=== PATIENT | female | born 1955 | race Caucasian/White ===

== ENCOUNTER 2018-03-23 13:31 | Observation (INO) ==
[2018-03-23] MEDS ORDERED: IPRATROPIUM/ALBUTEROL 3 ML AMPUL.NEB NEB ONE (13:37)
[2018-03-23] MEDS ORDERED: 0.9 % SODIUM CHLORIDE 1,000 ML IV ONE (13:37)
[2018-03-23] MEDS ORDERED: LEVOFLOXACIN 500 MG/100 ML BAG IV ONE (13:55)
--- NOTE | 2018-03-23 14:15 | Emergency Department Note ---
SOB HPI - General Chief Complaint: Shortness of Breath/Dyspnea Stated Complaint: shortness of breath Time Seen by Provider: 03/23/18 13:54 Source: patient Mode of arrival: ambulatory Limitations: no limitations - History of Present Illness 62-year-old female presents with cough and cold symptoms since March 13. She was seen on the and placed on Augmentin. States she still has a productive cough but the sputum is clear now. However she still short of breath. Her oxygen saturations 74% here today on room air. She was sent over from [facility] for further evaluation. She does wear oxygen at home at night but not usually during the day. States this is much worse than her baseline. No fever chills in the last 24 hours but has had fever and chills intermittently over the last week. Does have some nausea. No vomiting or diarrhea. Started with a sore throat resolved. No ear pain. - Related Data Home Medications Medication Instructions Recorded Confirmed Cyanocobalamin (Vitamin B-12) 2,500 mcg PO QDAYCC 12/20/15 11/07/17 [Vitamin B12] amoxicillin 875 mg-potassium 1 tab PO BID 03/23/18 03/23/18 clavulanate 125 mg tablet Previous Rx's Medication Instructions Recorded albuterol sulfate HFA 90 180 mcg INHALATION Q6H PRN #36 g 04/19/15 mcg/actuation aerosol inhaler acyclovir 400 mg tablet 400 mg PO QDAY #90 tab 04/28/17 azathioprine 50 mg tablet 50 mg PO .COMPLEX #315 tab 05/26/17 atorvastatin 20 mg tablet 20 mg PO QDAY #30 tab 05/29/17 triamterene 37.5 1 cap PO QDAY PRN #30 cap 05/29/17 mg-hydrochlorothiazide 25 mg capsule ergocalciferol (vitamin D2) 50,000 50,000 unit PO Q2W #6 cap 09/01/17 unit capsule duloxetine 60 mg capsule,delayed 60 mg PO QDAY 90 Days #90 cap 10/21/17 release carisoprodol 350 mg tablet 350 mg PO .COMPLEX #60 tab 11/24/17 metformin 850 mg tablet 850 mg PO TID #270 tab 03/02/18 methadone 10 mg tablet 20 mg PO Q12H #120 tab 03/02/18 levothyroxine 50 mcg tablet 25 mcg PO QDAY 90 Days #45 tab 03/23/18 Allergies Allergy/AdvReac Type Severity Reaction Status Date / Time Paroxetine [From Paxil] Allergy Severe Hives Verified 03/23/18 12:43 promethazine [From Phenergan] Allergy Unknown Unknown Verified 03/23/18 12:43 aspirin AdvReac Severe Diarrhea Verified 03/23/18 12:43 codeine AdvReac Severe Gastrointestinal Verified 03/23/18 12:43 Upset NSAIDS (Non-Steroidal AdvReac Severe Gastrointestinal Verified 03/23/18 12:43 Anti-Inflamma Upset Review of Systems All systems ED: reviewed and negative except as stated. Past Medical History - Past Medical History Medical history: Reports: COPD, DM, fibromyalgia Psychiatric history: Reports: no psych history [employer]ICER history: Reports: non-contributory Surgical history ED: Reports: non-contributory, orthopedic, other - Social History smoking status: Current every day smoker Alcohol use: Reports: Rarely Drug use: Reports: none Physical Exam Limitations: no limitations General appearance: alert, in no apparent distress Head: atraumatic, normocephalic, normal inspection Eye: Present: normal appearance. Absent: conjunctival injection ENT: normal exam, normal oropharynx, mucous membranes moist, TM's normal bilaterally, normal external ear exam Neck: Present: normal inspection, trachea midline. Absent: tenderness, lymphadenopathy Chest: Present: symmetric chest wall rise Respiratory: Present: respiratory distress (Mildly labored breathing on arrival with oxygen saturations in the 70s on room air), wheezes (Expiratory wheezes throughout). Absent: stridor Cardiovascular: Present: regular rate, normal heart sounds Neurological: Present: alert, oriented X3 Psychiatric: Present: normal affect, normal mood Skin: Present: warm, dry, intact, normal color Course Course Narrative: @[address] Ortiz who agrees to see/admit the patient. Vital Signs Temperature 97.3 F 03/23/18 13:31 Pulse Rate 96 H 03/23/18 13:31 Respiratory Rate 24 H 03/23/18 13:31 Blood Pressure 144/128 03/23/18 13:31 Pulse Oximetry (%) 74 L 03/23/18 13:31 Temperature 97.3 F 03/23/18 13:31 Pulse Rate 91 H 03/23/18 14:42 Respiratory Rate 19 03/23/18 14:42 Blood Pressure 99/85 10/01/18 14:42 Pulse Oximetry (%) 90 03/23/18 14:42 Shortness of Breath/Dyspnea - Lab Data Lab results reviewed: Yes I reviewed the patient's lab results. Result diagrams: 03/23/18 13:36 03/23/18 13:36 Lab Results 03/23/18 03/23/18 03/23/18 Range/Units 13:36 13:36 13:36 WBC 8.6 (4.5-11.0) K/mcL RBC 4.51 (4.00-5.20) M/mcL Hgb 16.1 H (12.0-15.0) g/dL Hct 48.3 H (36.0-48.0) % MCV 107.1 H (80.0-100.0) fL MCH 35.6 H (26.0-34.0) pg MCHC 33.3 (31.0-36.0) g/dL RDW 16.0 H (11.5-14.5) % Plt Count 261 (140-440) K/mcL MPV 8.2 (7.4-10.4) fL Total Counted 100 Seg Neutrophils % 81 H (38-78) % Band Neutrophils % Not Reportable Lymphocytes % 11 L (15-49) % Monocytes % (Manual) 7 (1-12) % Eosinophils % (Manual) 1 (0-7) % Platelet Estimate Normal (NORMAL) RBC Morphology Abnorm A (NORMAL) Anisocytosis 1+ A (NONE SEEN) Macrocytosis 2+ A (NONE SEEN) VBG Lactic Acid 2.2 (0.5-2.2) mmol/L Sodium 136 (133-145) mmol/L Potassium 4.5 (3.3-5.1) mmol/L Chloride 93 L (96-108) mmol/L Carbon Dioxide 28 (22-30) mmol/L Anion Gap 15.0 (8-16) BUN 15 (8-23) mg/dl Creatinine 0.8 (0.6-1.1) mg/dl GFR Calculation 79 Glucose 168 H (70-105) mg/dL Calcium 10.2 (8.6-10.4) mg/dl Total Bilirubin 0.5 (0.0-1.0) mg/dL AST 16 (0-37) U/l ALT 12 (0-40) U/l Alkaline Phosphatase 113 (39-117) U/L NT-Pro-B Natriuret Pep 65.3 (0-125) pg/ml Total Protein 7.4 (5.9-8.4) gm/dL Albumin 4.5 (3.2-5.2) gm/dL Globulin 2.9 (2.2-3.7) gm/dL Albumin/Globulin Ratio 1.6 (1.0-2.3) - Radiology Data Radiology results reviewed: Yes I reviewed the patient's radiology results. Disposition Pt seen by [facility]/PA only: Yes Clinical Impression: Hypoxia, Pneumonia Disposition: Xfer As Inpt ([facility]) Condition: Fair Referrals: Les Lopez MD [Primary Care Provider] - Time of Disposition: 15:24
--- NOTE | 2018-03-23 14:23 | XRay Report ---
CLINICAL INFORMATION: shortness of breath COMPARISON: None. FINDINGS: Heart size, mediastinum and pulmonary vessels are normal. Mild patchy bibasilar airspace disease either atelectasis or developing infiltrate. No effusion. IMPRESSION: Mild patchy bibasilar airspace disease is new. Atelectasis versus infiltrate. Interpreted and Authenticated by: Brent Hsu 03/23/18
[2018-03-23 14:25] LABS: Mean Cell Volume 107.1 fL (80.0-100.0); Mean Corpuscular HGB Conc 33.3 g/dL (31.0-36.0); Mean Corpuscular Hemoglobin 35.6 pg (26.0-34.0); Platelet Count 261 K/mcL (140-440); RBC 4.51 M/mcL (4.00-5.20)
[2018-03-23 14:46] LABS: Anisocytosis 1+ (NONE SEEN); Eosinophils % (Manual) 1 % (0-7); Lymphocytes % 11 % (15-49); Macrocytosis 2+ (NONE SEEN); Monocytes % (Manual) 7 % (1-12); Platelet Estimate NORMAL (NORMAL); RBC Morphology ABNORM (NORMAL); Segmented Neutrophils % 81 % (38-78)
[2018-03-23 14:47] LABS: ALT/SGPT 12 U/l (0-40); Albumin 4.5 gm/dL (3.2-5.2); Albumin/Globulin Ratio 1.6 (1.0-2.3); Alkaline Phosphatase 113 U/L (39-117); Blood Urea Nitrogen 15 mg/dl (8-23); proBNP 65.3 pg/ml (0-125)
--- NOTE | 2018-03-23 17:00 | Internal Med History&Physical ---
<Pierre Scanlon - Last Filed: 03/23/18 16:57> Medical - H&P: HPI Patient information: Note initiated : 03/23/18 at 4:57 pm Service Date, if different from initiated Date: [] Patient: Rosa Eckert a 62 y/o F admitted on for shortness of breath. Chief Complaint: [] Chief complaint: SOB for about a week History of present illness: Ms. Eckert is a 62 year old F who presents with SOB for about a week. Started with a URI on the 03/13/18, started Augmentin on 03/14/18. SOB has improved over this course along with decrease in sore throat. Sputum has also changed from green to clear, but still present. Pt reports cough, chest pain w/ cough, runny nose and diaphoresis. Pt denies throat pain or fever. Review of systems: Gen: Reports sweats. denies weight changes, chills or fever HEENT: Pt denies vision changes, tinnitus, sore throat or neck pain CV: reports SOB, slight pedal edema, denies palpitations, chest pain (unless coughing) Pulm: Repots cough, clear sputum, GI: denies changes in freq, hematochezia/melena, or painful defecation : denies changes in freq, hesitancy or inability to void Neuro: reports some LE peripheral neuropathy, denies headaches or dizziness MSK: Denies muscle weakness or arthralgias Medical - H&P: PMH Medical history: Pt reports psoriatic arthritis DM Type 2 COPD (last exacerbation in 2008) Hypothyroidism B12 def Surgical history: Left knee arthroscopy before 2008 Left broken ankle surgery 2008 Pertinent family history: Father of lung cancer in his 50's Mother of ARDS in her 70's with history of DM type II Both were lifelong smokers Social history: 34 pack/year smoker Hasn't drank in years Smoked marijuana years ago Smoking status: Current every day smoker Have you smoked in the last 12 months: Yes Medical - H&P: Meds Home Medications Medication Instructions Recorded Confirmed Type albuterol sulfate HFA 90 180 mcg INHALATION Q6H PRN #36 g 04/19/15 03/23/18 Rx mcg/actuation aerosol inhaler Cyanocobalamin (Vitamin B-12) 2,500 mcg PO QDAYCC 12/20/15 03/23/18 History [Vitamin B12] acyclovir 400 mg tablet 400 mg PO QDAY #90 tab 04/28/17 03/23/18 Rx azathioprine 50 mg tablet 50 mg PO .COMPLEX #315 tab 05/26/17 03/23/18 Rx atorvastatin 20 mg tablet 20 mg PO QDAY #30 tab 05/29/17 03/23/18 Rx triamterene 37.5 1 cap PO QDAY PRN #30 cap 05/29/17 03/23/18 Rx mg-hydrochlorothiazide 25 mg capsule ergocalciferol (vitamin D2) 50,000 50,000 unit PO Q2W #6 cap 09/01/17 03/23/18 Rx unit capsule duloxetine 60 mg capsule,delayed 60 mg PO QDAY 90 Days #90 cap 10/21/17 Rx release carisoprodol 350 mg tablet 350 mg PO .COMPLEX #60 tab 11/24/17 03/23/18 Rx metformin 850 mg tablet 850 mg PO TID #270 tab 03/02/18 03/23/18 Rx methadone 10 mg tablet 20 mg PO Q12H #120 tab 03/02/18 03/23/18 Rx Dextromethorphan Polistirex 30 mg PO Q12H PRN 03/23/18 03/23/18 History [Delsym] amoxicillin 875 mg-potassium 1 tab PO BID 03/23/18 03/23/18 History clavulanate 125 mg tablet levothyroxine 50 mcg tablet 25 mcg PO QDAY 90 Days #45 tab 03/23/18 03/23/18 Rx Allergies Allergy/AdvReac Type Severity Reaction Status Date / Time Paroxetine [From Paxil] Allergy Severe Hives Verified 03/23/18 12:43 promethazine [From Phenergan] Allergy Unknown Unknown Verified 03/23/18 12:43 aspirin AdvReac Severe Diarrhea Verified 03/23/18 12:43 codeine AdvReac Severe Gastrointestinal Verified 03/23/18 12:43 Upset NSAIDS (Non-Steroidal AdvReac Severe Gastrointestinal Verified 03/23/18 12:43 Anti-Inflamma Upset Medical - H&P: Exam - Constitutional Vitals: Temp Pulse Resp BP Pulse Ox 97.3 F 95 H 20 111/86 90 03/23/18 13:31 03/23/18 16:41 03/23/18 16:41 03/23/18 16:41 03/23/18 16:41 Exam: Gen: AAOx4, NAD, HEENT: PERRL, MMM, supple neck CV: RRR, pt states she has systolic murmur, but unable to hear. No rubs/ gallops. 1+ pedal edema Pulm: diminished breath sounds w/ crackles bital Abd: nl BSx4, NT/ND, Neuro: slightly decreased sensation in toes bilaterally MSK: 5/5 muscle strength in UE and LE Medical - H&P: Reslt - Labs CBC & Chem 7: 03/23/18 13:36 03/23/18 13:36 Labs: Short CBC 03/23/18 Range/Units 13:36 WBC 8.6 (4.5-11.0) K/mcL Hgb 16.1 H (12.0-15.0) g/dL Hct 48.3 H (36.0-48.0) % Plt Count 261 (140-440) K/mcL BMP 03/23/18 13:36 Sodium 136 Potassium 4.5 Chloride 93 L Carbon Dioxide 28 BUN 15 Creatinine 0.8 Glucose 168 H Calcium 10.2 Liver Function 03/23/18 Range/Units 13:36 Total Bilirubin 0.5 (0.0-1.0) mg/dL AST 16 (0-37) U/l ALT 12 (0-40) U/l Alkaline Phosphatase 113 (39-117) U/L Albumin 4.5 (3.2-5.2) gm/dL <Bobo Ortiz - Last Filed: 03/23/18 18:08> Medical - H&P: HPI Patient information: Note initiated : 03/23/18 at 6:00 pm Service Date, if different from initiated Date: [] Patient: Rosa Eckert a 62 y/o F admitted on for shortness of breath. Chief Complaint: [] History of present illness: Ms. Eckert is a 62 year old F cough is lessening but not resolved and was concerned antibiotics running short. Still smokes 1/2 ppd while sick this week but is baseline 1ppd x 36 years baseline 2lpm oxygen at night none during the day. quit smoking years ago. - Constitutional Constitutional: Present: excessive sweating, fatigue. Absent: fever(s) - Respiratory Respiratory: Present: cough, dyspnea on exertion, wheezing, chest congestion Medical - H&P: PMH Time spent discussing smoking cessation with patient: 3 to 10 minutes Medical - H&P: Exam - Constitutional Vitals: Temp Pulse Resp BP Pulse Ox 97.3 F 86 20 110/86 92 03/23/18 13:31 03/23/18 17:46 03/23/18 17:46 03/23/18 17:20 03/23/18 17:46 General appearance: average body habitus, cooperative - Respiratory Respiratory exam: Present: decreased breath sounds, prolonged expiratory phase, wheezes - Cardiovascular Cardiovascular exam: Present: normal rate and rhythm - GI/Abdominal GI/Abdominal exam: Present: normal bowel sounds - Other Additional findings: pt standing on room air sats drop to 84. with oxygen up to 87% walking in place on 2 liters Medical - H&P: Reslt - Labs CBC & Chem 7: 03/23/18 13:36 03/23/18 13:36 Labs: Short CBC 03/23/18 Range/Units 13:36 WBC 8.6 (4.5-11.0) K/mcL Hgb 16.1 H (12.0-15.0) g/dL Hct 48.3 H (36.0-48.0) % Plt Count 261 (140-440) K/mcL BMP 03/23/18 13:36 Sodium 136 Potassium 4.5 Chloride 93 L Carbon Dioxide 28 BUN 15 Creatinine 0.8 Glucose 168 H Calcium 10.2 Liver Function 03/23/18 Range/Units 13:36 Total Bilirubin 0.5 (0.0-1.0) mg/dL AST 16 (0-37) U/l ALT 12 (0-40) U/l Alkaline Phosphatase 113 (39-117) U/L Albumin 4.5 (3.2-5.2) gm/dL Medical - H&P: A/P (1) Respiratory distress Current visit: Yes Status: Acute improved. tx copd exacerbation and continue augmentin for pneumonia (2) Acute exacerbation of chronic obstructive pulmonary disease (COPD) Problem details: pt improved on nebs and iv steroids but will be observed overnight. start nicotine patch stop smoking. will need oxygen 2lpm rest 4lpm activity Current visit: Yes Status: Acute (3) Pneumonia Current visit: Yes Status: Resolved augmentin for 2 more days. increase steroids. - Narrative A/P Narrative: 55 mins spent in evaluation and coordination of care for this patient today. Pt seen and examined independently from the [facility] Capo
[2018-03-23] MEDS ORDERED: ACETAMINOPHEN 325 MG TABLET PO PRN (19:06)
[2018-03-23] MEDS ORDERED: ALBUTEROL SULFATE 2.5 MG/3 ML NEBULIZER NEB PRN (19:06)
[2018-03-23] MEDS: IPRATROPIUM/ALBUTEROL 3 ML AMPUL.NEB NEB SCH (19:41)
[2018-03-23] MEDS ORDERED: ALBUTEROL SULFATE 1 PUFF INHALER INH PRN (21:40)
[2018-03-23] MEDS ORDERED: DEXTROMETHORPHAN POLISTIREX 30 MG/5 ML PO PRN (21:40)
[2018-03-23] MEDS ORDERED: CARISOPRODOL 350 MG TABLET PO PRN (21:45)
[2018-03-23] MEDS ORDERED: azaTHIOprine 50 MG TABLET PO PRN (21:45)
[2018-03-23] MEDS: METHADONE 5 MG TABLET PO SCH (22:19)
[2018-03-23] MEDS: 0.9 % SODIUM CHLORIDE 10 ML SYRINGE IV SCH (22:20)
[2018-03-23] MEDS: NICOTINE 21 MG PATCH TOPICAL SCH (22:21)
[2018-03-24] MEDS: methylPREDNISolone SOD SUCC 40 MG/ML VIAL IV SCH ×3 (00:11→12:23)
[2018-03-24] MEDS: IPRATROPIUM/ALBUTEROL 3 ML AMPUL.NEB NEB SCH ×3 (00:11→13:20)
[2018-03-24] MEDS ORDERED: guaiFENesin/DEXTROMETHORPHAN ORAL SOL PO PRN (00:35)
[2018-03-24] MEDS: 0.9 % SODIUM CHLORIDE 10 ML SYRINGE IV SCH ×2 (05:23→14:14)
[2018-03-24] MEDS ORDERED: LEVOTHYROXINE 50 MCG TABLET PO SCH (07:30)
[2018-03-24] MEDS ORDERED: AMOXICILLIN/POTASSIUM CLAV 875 MG TABLET PO SCH (08:00)
[2018-03-24] MEDS: METHADONE 5 MG TABLET PO SCH (08:33)
[2018-03-24] MEDS: metFORMIN 850 MG TABLET PO SCH ×2 (08:33→12:23)
[2018-03-24] MEDS ORDERED: AZITHROMYCIN 250 MG TABLET PO SCH (09:00)
[2018-03-24] MEDS ORDERED: ENOXAPARIN 40 MG/0.4 ML SYRINGE SQ SCH (09:00)
[2018-03-24] MEDS ORDERED: ACYCLOVIR 400 MG TABLET PO SCH (09:00)
[2018-03-24] MEDS ORDERED: ATORVASTATIN 20 MG TABLET PO SCH (09:00)
[2018-03-24] MEDS ORDERED: DULoxetine 30 MG CAPSULE PO SCH (09:00)
[2018-03-24] MEDS ORDERED: NICOTINE 21 MG PATCH TOPICAL SCH (10:00)
[2018-03-24] MEDS: NICOTINE 21 MG PATCH TOPICAL SCH (10:12)
--- NOTE | 2018-03-24 11:44 | Internal Med Progress Note ---
<CapoPierre - Last Filed: 03/24/18 11:46> Medical - PN: Subj Patient information: Note initiated : 03/24/18 at 11:42 am Service Date, if different from initiated Date: [] Patient: Rosa Eckert 62 y/o F admitted on 03/23/18 for SOB/COPD Exacerbation , Pneumonia. Chief Complaint: [] Interval history: Pt reports that she slept well last night, has an easier time breathing and feels how she did before she had her URI. Still some chest pain with coughing. - Constitutional Vitals: Vital Signs Temp Pulse Resp BP Pulse Ox 96.7 F L 98 H 18 105/72 90 03/24/18 07:09 03/24/18 08:49 03/24/18 08:49 03/24/18 07:09 03/24/18 08:51 Period Temp Pulse Resp BP Sys/Hanley Pulse Ox Last 24 Hr 96.7 F-98.0 F 71-98 10-25 93-144/50-128 74-95 Intake and Output 03/23/18 03/24/18 03/24/18 21:59 05:59 13:59 Intake Total 1100 / 1100 200 / 200 Output Total 150 / 150 300 / 300 Balance 950 / 950 -100 / -100 Weight 185 lb Intake & Output: Intake & Output 03/23/18 03/24/18 03/24/18 21:59 05:59 13:59 Intake Total 1100 / 1100 200 / 200 Output Total 150 / 150 300 / 300 Balance 950 / 950 -100 / -100 Weight 185 lb Intake: IV 1100 / 1100 Sodium Chloride 0.9% 1,000 ml @ 1000 / 1000 Wide Open IV BOLUS ONE Rx#: [id number] Oral 200 / 200 Output: Void Amount 150 / 150 300 / 300 Other: Meal Breakfast Percent of Meal Consumed 100% Feeding Ability Assist with Tray Set Up Urine Appearance Clear Clear Urine Color Bright Yellow Dark Yellow Urine Odor Normal Strong - ENT ENT exam: Present: mucous membranes moist - Respiratory Respiratory exam: Present: decreased breath sounds. Absent: rales, respiratory distress - Cardiovascular Cardiovascular exam: Present: normal rate and rhythm, RRR. Absent: bradycardia , tachycardia - Extremities Exam Extremities exam: Present: pedal edema Additional comments: 1+ - Skin Skin exam: Present: dry, warm Medical - PN: Obj Da - Labs CBC & Chem 7: 03/23/18 13:36 03/23/18 13:36 Labs: Abnormal Lab Results 03/23/18 03/23/18 13:36 13:36 Hgb 16.1 H Hct 48.3 H MCV 107.1 H MCH 35.6 H RDW 16.0 H Seg Neutrophils % 81 H Lymphocytes % 11 L RBC Morphology Abnorm A Anisocytosis 1+ A Macrocytosis 2+ A Chloride 93 L Glucose 168 H Meds: Medications Acetaminophen (Tylenol) 650 mg PO Q6HP PRN PRN Reason: PAIN/FEVER > 101 Acyclovir (Zovirax) 400 mg PO QDAY [facility] Last Admin: 03/24/18 08:33 Dose: 400 mg Albuterol Sulfate (Ventolin) 2.5 mg NEB Q2HP PRN PRN Reason: Shortness Of Breath Albuterol/Ipratropium (Duoneb) 3 ml NEB Q6HRT [facility] Last Admin: 03/24/18 08:41 Dose: 3 ml Amoxicillin/Clavulanate Potassium (Augmentin) 875 mg PO BIDCC [facility] Last Admin: 03/24/18 08:33 Dose: 875 mg Atorvastatin Calcium (Lipitor) 20 mg PO QDAY [facility] Last Admin: 03/24/18 08:33 Dose: 20 mg Azathioprine (Imuran) 50 mg PO BIDP PRN PRN Reason: BACK SPASMS Azithromycin (Zithromax) 500 mg PO DAILY [facility] Stop: 03/27/18 09:01 Last Admin: 03/24/18 08:33 Dose: 500 mg Carisoprodol (Soma) 350 mg PO BIDP PRN PRN Reason: Muscle Spasm Last Admin: 03/23/18 22:19 Dose: 350 mg Dextromethorphan Polistirix (Cough Dm Er) 30 mg PO Q12HP PRN PRN Reason: Cough Duloxetine HCl (Cymbalta) 60 mg PO QDAY [facility] Last Admin: 03/24/18 08:33 Dose: 60 mg Enoxaparin Sodium (Lovenox) 40 mg SQ DAILY [facility] Last Admin: 03/24/18 08:33 Dose: 40 mg Guaifenesin (Robitussin Dm) 10 ml PO Q4HP PRN PRN Reason: Cough Last Admin: 03/24/18 01:41 Dose: 10 ml Levothyroxine Sodium (Synthroid) 25 mcg PO QAMAC [facility] Last Admin: 03/24/18 07:29 Dose: 25 mcg Metformin HCl (Glucophage) 850 mg PO TIDCC [facility] Last Admin: 03/24/18 08:33 Dose: 850 mg Methadone HCl (Dolophine) 20 mg PO Q12 [facility] Last Admin: 03/24/18 08:33 Dose: 20 mg Methylprednisolone Sodium Succinate (Solu-Medrol) 40 mg IV Q6 [facility] Last Admin: 03/24/18 05:23 Dose: 40 mg Nicotine (Nicoderm) 21 mg TOPICAL DAILY@1000 [facility] Last Admin: 03/24/18 10:12 Dose: Not Given Sodium Chloride (Saline Flush) 10 ml IV Q8 [facility] Last Admin: 03/24/18 05:23 Dose: 10 ml Medical - PN: A/P - Time Spent With Patient Total time spent is greater than 50% in coordination of care (as documented) at patient's floor/unit and/or counseling patient: Greater than 35 minutes (1) Acute exacerbation of chronic obstructive pulmonary disease (COPD) Problem details: pt improved on nebs and iv steroids but will be observed overnight. start nicotine patch stop smoking. will need oxygen 2lpm rest 4lpm activity Status: Acute Current Visit: Yes <Bobo Ortiz - Last Filed: 03/24/18 14:31> Medical - PN: Subj Patient information: Note initiated : 03/24/18 at 2:30 pm Service Date, if different from initiated Date: [] Patient: Rosa Eckert 62 y/o F admitted on 03/23/18 for SOB/COPD Exacerbation , Pneumonia. Chief Complaint: [] - Constitutional Vitals: Vital Signs Temp Pulse Resp BP Pulse Ox 96.9 F L 105 H 20 102/73 94 03/24/18 12:00 03/24/18 13:20 03/24/18 13:20 03/24/18 12:00 03/24/18 12:15 Period Temp Pulse Resp BP Sys/Hanley Pulse Ox Last 24 Hr 96.7 F-98.0 F 67-105 15-25 93-120/50-96 90-95 Intake and Output 03/24/18 03/24/18 03/24/18 05:59 13:59 21:59 Intake Total 200 / 200 Output Total 300 / 300 550 / 550 Balance -100 / -100 -550 / -550 Intake & Output: Intake & Output 03/24/18 03/24/18 03/24/18 05:59 13:59 21:59 Intake Total 200 / 200 Output Total 300 / 300 550 / 550 Balance -100 / -100 -550 / -550 Intake: Oral 200 / 200 Output: Void Amount 300 / 300 550 / 550 Other: Meal Lunch Percent of Meal Consumed 100% Feeding Ability Independent Urine Appearance Clear Urine Color Dark Yellow Dark Yellow Blood Tinged Urine Odor Strong Medical - PN: Obj Da - Labs CBC & Chem 7: 03/23/18 13:36 03/23/18 13:36 Labs: Abnormal Lab Results 03/23/18 03/23/18 13:36 13:36 Hgb 16.1 H Hct 48.3 H MCV 107.1 H MCH 35.6 H RDW 16.0 H Seg Neutrophils % 81 H Lymphocytes % 11 L RBC Morphology Abnorm A Anisocytosis 1+ A Macrocytosis 2+ A Chloride 93 L Glucose 168 H Meds: Medications Acetaminophen (Tylenol) 650 mg PO Q6HP PRN PRN Reason: PAIN/FEVER > 101 Acyclovir (Zovirax) 400 mg PO QDAY [facility] Last Admin: 03/24/18 08:33 Dose: 400 mg Albuterol Sulfate (Ventolin) 2.5 mg NEB Q2HP PRN PRN Reason: Shortness Of Breath Albuterol/Ipratropium (Duoneb) 3 ml NEB Q6HRT [facility] Last Admin: 03/24/18 13:20 Dose: 3 ml Amoxicillin/Clavulanate Potassium (Augmentin) 875 mg PO BIDCC [facility] Last Admin: 03/24/18 08:33 Dose: 875 mg Atorvastatin Calcium (Lipitor) 20 mg PO QDAY [facility] Last Admin: 03/24/18 08:33 Dose: 20 mg Azathioprine (Imuran) 50 mg PO BIDP PRN PRN Reason: BACK SPASMS Azithromycin (Zithromax) 500 mg PO DAILY [facility] Stop: 03/27/18 09:01 Last Admin: 03/24/18 08:33 Dose: 500 mg Carisoprodol (Soma) 350 mg PO BIDP PRN PRN Reason: Muscle Spasm Last Admin: 03/23/18 22:19 Dose: 350 mg Dextromethorphan Polistirix (Cough Dm Er) 30 mg PO Q12HP PRN PRN Reason: Cough Duloxetine HCl (Cymbalta) 60 mg PO QDAY [facility] Last Admin: 03/24/18 08:33 Dose: 60 mg Enoxaparin Sodium (Lovenox) 40 mg SQ DAILY [facility] Last Admin: 03/24/18 08:33 Dose: 40 mg Guaifenesin (Robitussin Dm) 10 ml PO Q4HP PRN PRN Reason: Cough Last Admin: 03/24/18 01:41 Dose: 10 ml Levothyroxine Sodium (Synthroid) 25 mcg PO QAMAC [facility] Last Admin: 03/24/18 07:29 Dose: 25 mcg Metformin HCl (Glucophage) 850 mg PO TIDCC [facility] Last Admin: 03/24/18 12:23 Dose: 850 mg Methadone HCl (Dolophine) 20 mg PO Q12 [facility] Last Admin: 03/24/18 08:33 Dose: 20 mg Methylprednisolone Sodium Succinate (Solu-Medrol) 40 mg IV Q6 [facility] Last Admin: 03/24/18 12:23 Dose: 40 mg Nicotine (Nicoderm) 21 mg TOPICAL DAILY@1000 [facility] Last Admin: 03/23/18 22:21 Dose: Not Given Nicotine (Nicoderm) 21 mg TOPICAL DAILY@1000 [facility] Sodium Chloride (Saline Flush) 10 ml IV Q8 [facility] Last Admin: 03/24/18 14:14 Dose: 10 ml Medical - PN: A/P - Time Spent With Patient Total time spent is greater than 50% in coordination of care (as documented) at patient's floor/unit and/or counseling patient: (1) Respiratory distress Status: Acute Current Visit: Yes (2) Acute exacerbation of chronic obstructive pulmonary disease (COPD) Problem details: pt improved on nebs and iv steroids but will be observed overnight. start nicotine patch stop smoking. will need oxygen 2lpm rest 4lpm activity Status: Acute Current Visit: Yes (3) Pneumonia Status: Resolved Current Visit: Yes - Narrative A/P Narrative: improved and comfortable for discharge. See discharge summary
--- NOTE | 2018-03-24 14:33 | Discharge Summary ---
Medical - DS: Prov Patient information: Note initiated : 03/24/18 at 2:31 pm Service Date, if different from initiated Date: [] Patient: Rosa Eckert 62 y/o F admitted on 03/23/18 for SOB/COPD Exacerbation , Pneumonia. Chief Complaint: [] Dyspnea on exertion Date of admission: 03/23/18 18:57 Discharge date: 03/24/18 Primary care physician: Les Lopez Admitting clinician: Bobo Ortiz Attending physician on discharge: Bobo Ortiz Discharging clinician: Bobo Ortiz Medical - DS: Meds - Discharge Medications Prescriptions: Azithromycin [Zithromax] 250 mg PO DAILY #5 tab Ipratropium/Albuterol [Duoneb] 3 ml NEB Q6HRT #90 ampul.neb Nicotine [Nicoderm] 21 mg TOPICAL DAILY@1000 #20 patch predniSONE [Prednisone] 10 mg PO ONCE #20 tab Active and Home Medications: Home Medications albuterol sulfate HFA 90 mcg/actuation aerosol inhaler 180 mcg INHALATION Q6H PRN #36 g 04/19/15 [Rx Confirmed 03/23/18 Last Taken 03/23/18 00:00] Cyanocobalamin (Vitamin B-12) [Vitamin B12] 2,500 mcg PO QDAYCC 12/20/15 [ History Confirmed 03/23/18 Last Taken 03/23/18 12:00] acyclovir 400 mg tablet 400 mg PO QDAY #90 tab 04/28/17 [Rx Confirmed 03/23/18 Last Taken 03/23/18 12:00] azathioprine 50 mg tablet 50 mg PO .COMPLEX #315 tab 05/26/17 [Rx Confirmed 07/10 Last Taken 03/23/18 12:00] atorvastatin 20 mg tablet 20 mg PO QDAY #30 tab 05/29/17 [Rx Confirmed 03/23/18 Last Taken 03/23/18 19:00] triamterene 37.5 mg-hydrochlorothiazide 25 mg capsule 1 cap PO QDAY PRN #30 cap 05/29/17 [Rx Confirmed 03/23/18 Last Taken 03/23/18 06:00] ergocalciferol (vitamin D2) 50,000 unit capsule 50,000 unit PO Q2W #6 cap [Rx Confirmed 03/23/18 Last Taken 03/19/18] duloxetine 60 mg capsule,delayed release 60 mg PO QDAY 90 Days #90 cap 10/21/17 [Rx Confirmed 03/23/18 Last Taken 03/23/18 12:00] carisoprodol 350 mg tablet 350 mg PO .COMPLEX #60 tab 11/24/17 [Rx Confirmed 07/10 Last Taken 03/23/18 00:00] metformin 850 mg tablet 850 mg PO TID #270 tab 03/02/18 [Rx Confirmed 03/23/18 Last Taken 03/23/18 12:00] methadone 10 mg tablet 20 mg PO Q12H #120 tab 03/02/18 [Rx Confirmed 03/23/18 Last Taken 03/23/18 06:00] Dextromethorphan Polistirex [Delsym] 30 mg PO Q12H PRN 03/23/18 [History Confirmed 03/23/18 Last Taken 03/22/18 23:00] amoxicillin 875 mg-potassium clavulanate 125 mg tablet 1 tab PO BID 03/23/18 [ History Confirmed 03/23/18 Last Taken 03/23/18 06:00] levothyroxine 50 mcg tablet 25 mcg PO QDAY 90 Days #45 tab 03/23/18 [Rx Confirmed 03/23/18 Last Taken 03/23/18 06:00] Medical - DS: Hosp Hospital course: Mr. Eckert is a 62 year old F admitted with cough that is dry and CREWS. Increased oxygen needs. No fever. Green phlegm now cleared but still concerned about respiratory distress and running out of antibiotics. Observation overnight with smoking cessation and steroids and nebs. Pt improved and got good nights rest. Discharge to home with prednisone taper and azithromycin Pt counseled regarding smoking cessation and will try nicotine patches. IF fail will discuss with PCP [facility] course. Has depression so will need to be followed for symptoms. Discharge diagnosis: Acute Copd Exacerbation Secondary discharge diagnosis: Pneumonia Bronchitis Tobacco abuse Chronic pain Reason for admission: Acute COPD Exacerbation Complications: none Time spent discussing smoking cessation with patient: more than 10 minutes - Time Spent with Patient Total time spent providing and/or coordinating discharge services: Greater than 30 minutes Medical - DS: Exam - Constitutional Vitals: Vital Signs Temp Pulse Pulse Resp BP BP Pulse Ox 03/24/18 13:20 105 H 20 03/24/18 12:15 94 03/24/18 12:00 96.9 F L 67 18 102/73 95 03/24/18 08:51 90 03/24/18 08:50 90 03/24/18 08:49 98 H 18 03/24/18 07:47 71 18 92 03/24/18 07:09 96.7 F L 71 18 105/72 92 03/24/18 04:49 98.0 F 98 H 20 103/72 91 03/24/18 00:00 97.9 F 87 20 115/81 93 03/23/18 23:55 93 03/23/18 20:32 77 20 95 03/23/18 19:45 81 18 03/23/18 19:06 91 03/23/18 19:00 97.3 F 87 16 103/81 91 03/23/18 18:57 96.9 F L 89 20 119/88 91 03/23/18 18:42 16 103/81 03/23/18 18:21 87 18 111/78 91 03/23/18 18:02 89 18 118/83 91 03/23/18 17:49 85 16 108/89 93 03/23/18 17:46 86 20 92 03/23/18 17:20 90 25 H 110/86 91 03/23/18 17:01 84 20 93/50 91 03/23/18 16:41 95 H 20 111/86 90 03/23/18 16:20 83 21 114/96 90 03/23/18 15:42 89 17 120/88 91 03/23/18 15:34 90 15 118/90 90 03/23/18 15:03 87 18 116/76 90 03/23/18 14:42 91 H 19 99/85 90 Intake and Output 03/24/18 03/24/18 03/24/18 05:59 13:59 21:59 Intake Total 200 / 200 Output Total 300 / 300 550 / 550 Balance -100 / -100 -550 / -550 Intake: Oral 200 / 200 Output: Void Amount 300 / 300 550 / 550 Other: Meal Lunch Percent of Meal Consumed 100% Feeding Ability Independent Urine Appearance Clear Urine Color Dark Yellow Dark Yellow Blood Tinged Urine Odor Strong General appearance: average body habitus, cooperative, no acute distress - Respiratory Respiratory exam: Present: prolonged expiratory phase, wheezes Additional comments: trace end expiratory - Cardiovascular Cardiovascular exam: Present: normal rate and rhythm - Extremities Exam Extremities exam: Present: pedal edema, tenderness Additional comments: trace edema pretibial; Medical - DS: Data Labs on day of discharge: Labs from last 24 hours 03/23/18 03/23/18 03/23/18 13:36 13:36 13:36 Total Counted 100 Seg Neutrophils % 81 H Lymphocytes % 11 L Monocytes % (Manual) 7 Eosinophils % (Manual) 1 Platelet Estimate Normal RBC Morphology Abnorm A Anisocytosis 1+ A Macrocytosis 2+ A VBG Lactic Acid 2.2 Sodium 136 Potassium 4.5 Chloride 93 L Carbon Dioxide 28 Anion Gap 15.0 BUN 15 Creatinine 0.8 GFR Calculation 79 Glucose 168 H Calcium 10.2 Total Bilirubin 0.5 AST 16 ALT 12 Alkaline Phosphatase 113 NT-Pro-B Natriuret Pep 65.3 Total Protein 7.4 Albumin 4.5 Globulin 2.9 Albumin/Globulin Ratio 1.6 Medical - DS: A/P - Patient/Caregiver Discharge Instructions Activity: increase activity as tolerated, wear oxygen at all times (2lpm at rest 4lpm with activity) Diet: Low Sodium (2gm) - Problem Maintenance (1) Respiratory distress Status: Acute (2) Acute exacerbation of chronic obstructive pulmonary disease (COPD) Status: Acute Comment: pt improved on nebs and steroids. Home with oral taper and abxs start nicotine patch stop smoking. will need oxygen 2lpm rest 4lpm activity (3) Pneumonia Status: Resolved Comment: finish the augmentin and finish 5 days of azithromycin Qualifiers: Pneumonia type: due to unspecified organism Laterality: bilateral Lung location: lower lobe of lung Qualified Code(s): J18.1 - Lobar pneumonia, unspecified organism - Follow up Plan Follow up with: Les Lopez MD [Primary Care Provider] - Disposition: Home, Self-Care Prognosis: Fair Rehab Potential: Good I certify that the patient requires SNF services: Yes
== END 2018-03-24 17:35 | disposition home or self-care (01) ==
LOC: MEDSUR 13:31 → ED 13:31 → MEDSUR 19:00
PROVIDERS: ADMIT Internal Medicine; ATTEND Internal Medicine